=== PATIENT | male | born 1985 | race Caucasian/White ===

== ENCOUNTER 2017-11-29 13:46 | Emergency (ER) | payer OTHER ==
[~2017-11-29] VITALS: Ht 177.8 cm; Wt 75.0 kg
[~2017-11-29 13:46] MED LIST: PERM5CRE TOP; Z.0.NO CURRENT MEDS
[2017-11-29 14:05] VITALS: BP 157/73; PULSE 78; RESP 16; TEMP 98.6; O2SAT 96
[2017-11-29] MEDS ORDERED: KETOROLAC TROMETHAMINE 60 MG/2 ML (IM) VIAL IM ONE (14:45)
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
[2017-11-29] MEDS ORDERED: TRAM50TA PO (16:21)
== END 2017-11-29 16:55 | disposition home or self-care (01) ==
LOC: NEPD 13:46
DX: S82.64XA Nondisplaced fracture of lateral malleolus of right fibula, initial encounter for closed fracture (principal); V89.2XXA Person injured in unspecified motor-vehicle accident, traffic, initial encounter; Z72.0 Tobacco use
CPT/HCPCS: 73610; 99283; J1885; L2114